=== PATIENT | female | born 1930 | race Caucasian/White ===

== ENCOUNTER 2017-04-30 14:48 | Inpatient (IN) | payer MEDICARE, OTHER ==
[~2017-04-30] VITALS: Ht 157.5 cm; Wt 51.8 kg
[2017-04-30 15:29] LABS: ABNORMAL IP MESSAGE 1; BASOPHILS % 0.2 % (0.0-2.0); HEMATOCRIT 37.9 % (37.0-47.0); HEMOGLOBIN 12.5 g/dl (12.0-16.0); LYMPHOCYTES # 0.4 10^3/ul (0.8-2.9); LYMPHOCYTES % 6.7 % (15.0-51.0); MEAN CORPUSCULAR HEMOGLOBIN 29.6 pg (29.0-33.0); MEAN CORPUSCULAR VOLUME 89.8 fl (82.0-101.0); MEAN PLATELET VOLUME 10.4 fl (7.4-10.4); MONOCYTE # 0.3 10^3/ul (0.3-0.9); MONOCYTES % 4.3 % (0.0-11.0); NEUTROPHIL # 5.5 10^3/ul (1.6-7.5); NEUTROPHILS % 88.5 % (39.0-77.0); PLATELET COUNT 367 10^3/UL (140-415); RED BLOOD COUNT 4.22 10^6/ul (4.20-5.40); RED CELL DISTRIBUTION WIDTH 15.9 % (11.5-14.5); WHITE BLOOD COUNT 6.3 10^3/ul (4.8-10.8)
[2017-04-30 15:40] LABS: POSITIVE DIFF @See below
[2017-04-30 15:42] LABS: INR 0.91; PROTIME 12.3 Sec (12.2-14.2)
[2017-04-30 15:43] LABS: PARTIAL THROMBOPLASTIN TIME 27.9 Sec (25.0-35.0)
[2017-04-30 15:48] LABS: ALANINE AMINOTRANSFERASE 58 IU/L (13-69); ALBUMIN 3.3 g/dl (3.3-4.9); ALBUMIN/GLOBULIN RATIO 0.86; ALKALINE PHOSPHATASE 77 IU/L (42-121); ANION GAP 12 (8-16); ASPARTATE AMINO TRANSFERASE 52 IU/L (15-46); BILIRUBIN,INDIRECT 0.3 mg/dl (0-1.1); BILIRUBIN,TOTAL 0.3 mg/dl (0.2-1.3); BLOOD UREA NITROGEN 38 mg/dl (7-20); CALCIUM 9.5 mg/dl (8.4-10.2); CARBON DIOXIDE 28 mmol/L (21-31); CHLORIDE 107 mmol/L (97-110); CREATININE 0.66 mg/dl (0.44-1.00); GLUCOSE 153 mg/dl (70-220); POTASSIUM 3.8 mmol/L (3.5-5.1); SODIUM 143 mmol/L (135-144); TOTAL PROTEIN 7.1 g/dl (6.1-8.1)
[2017-04-30 16:07] LABS: TROPONIN-I < 0.012 ng/ml (0.00-0.12)
--- NOTE | 2017-04-30 16:11 | RADRPT ---
PROCEDURE: X-ray Chest. CLINICAL INDICATION: Dyspnea. TECHNIQUE: Single view chest x-ray. COMPARISON: None available. FINDINGS: There are atherosclerotic changes of the aorta. The cardiomediastinal silhouette is large ly obscured pill there is complete opacification of the left hemithorax with shift of the mediastin al structures towards the right, consistent with a space occupying process, possibly an underlying e ffusion. The right lung is clear. There is no pneumothorax. There is mid thoracic dextroscoliosis. T here are no acute osseous abnormalities. Abnormal density overlying the left chest wall, which may b e external to the patient. IMPRESSION: 1. Complete opacification of the left hemithorax with shift of the mediastinal structures towards t he right, consistent with a space occupying process, possibly an underlying effusion. The mediastina l structures rightward shift may be accentuated due to the mid thoracic dextroscoliosis. 2. Vascular calcifications consistent with atherosclerosis. 3. Abnormal density overlying the chest wall, possibly external to the patient, consistent with the clinical findings of a fungating left breast mass. These findings discussed with Dr. Munguia in the ED at 1610 hours on 04/30/2017. RPTAT: HLBP .Anoop Whittington MD, MD Date Time Electronically viewed and signed by .Anoop Whittington MD, on 04/30/2017 16:11 .P/
[2017-04-30] MEDS ORDERED: SODIUM CHLORIDE 0.9% 1L BAG IV* STA (16:45)
[2017-04-30] MEDS ORDERED: CEFEPIME 2GM/50 ML (PMX) 50 ML IVPB STA (16:45)
[2017-04-30] MEDS ORDERED: SOD CHLORIDE 0.9% 1,000 ML IV SCH (16:56)
[2017-04-30] MEDS ORDERED: ENOXAPARIN 40 MG/0.4 ML SYG SC ONE (17:00)
[2017-04-30] MEDS ORDERED: ONDANSETRON 4 MG INJ IV PRN ×2 (17:00→23:00)
[2017-04-30] MEDS ORDERED: VANCOMYCIN 1 GM (PMX) 250 ML IVPB ONE (17:00)
[2017-04-30] MEDS ORDERED: ACETAMINOPHEN 325 MG TAB PO PRN ×2 (17:00→23:00)
--- NOTE | 2017-04-30 17:12 | ERA ---
ER Documentation Chief Complaint Date/Time DATE: 04/30/17 TIME: 17:06 Chief Complaint swelling on left breast, edema on left arm, bilat lower ext HPI This is an 86-year-old female who lives alone and presents to the emergency room for evaluation of shortness of breath. According to the patient she was at home and was feeling shortness of breath that she has been feeling for the past month. She states today was worse and she called 9 1 and was brought to the ER for evaluation. She states that she states she has been by a bug a few weeks ago and that is why she is having shortness of breath. This patient denies any chest pain associated with this but states that she has had some swelling in her left arm. The patient was brought to the ER for further evaluation and denies any aggravating or relieving factors for her symptoms. ROS All systems reviewed and are negative except as per history of present illness. Medications Home Meds No Active Prescriptions or Reported Meds Allergies Allergies: Coded Allergies: Penicillins (Verified Allergy, Intermediate, 04/30/17) PMhx/Soc Medical and Surgical Hx: pt denies Medical Hx, pt denies Surgical Hx Hx Alcohol Use: No Hx Substance Use: No Hx Tobacco Use: No Smoking Status: Never smoker Physical Exam Vitals Vital Signs Date Time Temp Pulse Resp B/P Pulse Ox O2 Delivery O2 Flow Rate FiO2 04/30/17 14:58 Nasal Cannula 2 04/30/17 14:55 98.3 109 19 142/81 98 Physical Exam INITIAL VITAL SIGNS: Reviewed by me GENERAL: The patient is frail-appearing elderly female, no acute distress HEENT: Dry mucous membranes, pupils equal, round, and reactive to light. EOMI. There is no scleral icterus. NECK: C-spine is soft and supple, there is no meningismus. There is no cervical lymphadenopathy. LUNGS: Diminished bilaterally. There are no rales, wheezes or rhonchi. HEART: Tachycardic, no murmurs, clicks, rubs or gallops. ABDOMEN: Soft, non-tender, non-distended. There are bowel sounds in all four quadrants. No rebound or guarding. EXTREMITIES: There is no peripheral cyanosis or edema. No focal swelling or erythema. NEUROLOGICAL: The patient moves all four extremities with 5/5 strength. Cranial nerves II - XII are intact. Normal gait. Alert and oriented SKIN: Large left-sided fungating breast mass with complete obliteration of breast tissue, inversion of nipple, and surrounding area of erythema. There is no apparent rash or petechiae. HEME/LYMPHATIC: Large 2+ lymphedema in the left upper extremity and left lower extremity PSYCHIATRIC: The patient does appear to be mildly anxious Result Diagram: 04/30/17 1450 04/30/17 1450 Results 24 hrs Laboratory Tests Test 04/30/17 14:50 04/30/17 14:52 White Blood Count 6.310^3/ul Red Blood Count 4.2210^6/ul Hemoglobin 12.5g/dl Hematocrit 37.9% Mean Corpuscular Volume 89.8fl Mean Corpuscular Hemoglobin 29.6pg Mean Corpuscular Hemoglobin Concent 33.0g/dl Red Cell Distribution Width 15.9% Platelet Count 13684^3/UL Mean Platelet Volume 10.4fl Neutrophils % 88.5% Lymphocytes % 6.7% Monocytes % 4.3% Eosinophils % 0.0% Basophils % 0.2% Nucleated Red Blood Cells % 0.0/100WBC Neutrophils # 5.510^3/ul Lymphocytes # 0.410^3/ul Monocytes # 0.310^3/ul Eosinophils # 0.010^3/ul Basophils # 0.010^3/ul Nucleated Red Blood Cells # 0.010^3/ul Prothrombin Time 12.3Sec Prothrombin Time Ratio 1.0 INR International Normalized Ratio 0.91 Activated Partial Thromboplast Time 27.9Sec Sodium Level 143mmol/L Potassium Level 3.8mmol/L Chloride Level 107mmol/L Carbon Dioxide Level 28mmol/L Anion Gap 12 Blood Urea Nitrogen 38mg/dl Creatinine 0.66mg/dl Glucose Level 153mg/dl Calcium Level 9.5mg/dl Total Bilirubin 0.3mg/dl Direct Bilirubin 0.00mg/dl Indirect Bilirubin 0.3mg/dl Aspartate Amino Transf (AST/SGOT) 52IU/L Alanine Aminotransferase (ALT/SGPT) 58IU/L Alkaline Phosphatase 77IU/L Troponin I < 0.012ng/ml Total Protein 7.1g/dl Albumin 3.3g/dl Globulin 3.80g/dl Albumin/Globulin Ratio 0.86 Lactic Acid Level 2.6mmol/L Current Medications Medications (Trade) Dose Ordered Sig/Brown Route PRN Reason Start Time Stop Time Status Last Admin Dose Admin Sodium Chloride 1500 ml 1,500 ml BOLUS OVER 2 HOURS STAT IV* 04/30/17 16:45 04/30/17 16:46 DC Cefepime HCl 50 ml @ 100 mls/hr ONCE STAT IVPB 04/30/17 16:45 04/30/17 17:14 Vancomycin HCl (Vancocin) 250 ml @ 125 mls/hr ONCE ONCE IVPB 04/30/17 17:00 04/30/17 18:59 Enoxaparin Sodium 40 mg 40 mg ONCE ONCE SC 04/30/17 17:00 04/30/17 17:01 DC Sodium Chloride (NS) 1,000 ml @ 80 mls/hr [id number] IV 04/30/17 16:56 05/01/17 05:25 Ondansetron HCl (Zofran Inj) 4 mg ER BRIDGE PRN IV NAUSEA AND/OR VOMITING 04/30/17 17:00 05/01/17 16:59 Acetaminophen (Tylenol Tab) 650 mg ER BRIDGE PRN PO MILD PAIN/FEVER 04/30/17 17:00 05/01/17 16:59 Procedures/MDM EKG: Rate/Rhythm: Sinus tachycardia QRS, ST, T-waves: [No changes consistent w/ acute ischemia] Impression: [No evidence of ischemia or arrhythmia] Chest X-ray 1V Interpreted by me: Soft Tissue: 1. Complete opacification of the left hemithorax with shift of the mediastinal structures towards the right, consistent with a space occupying process, possibly an underlying effusion. The mediastinal structures rightward shift may be accentuated due to the mid thoracic dextroscoliosis. 2. Vascular calcifications consistent with atherosclerosis. 3. Abnormal density overlying the chest wall, possibly external to the patient , consistent with the clinical findings of a fungating left breast mass. This 86-year-old female presents to the emergency room for evaluation of shortness of breath. When I evaluated the patient I noted frail-appearing elderly female who is in no acute distress however she was tachycardic. On my examination ideology large fungating left-sided breast mass with complete obliteration of the left breast and surrounding tissue. This patient has severe lymphedema in the left upper extremity and left lower extremity. She was not hypoxic however she was tachycardic. The patient had a septic workup in the emergency room was just reveals an elevated lactic acid. The patient was given 30 cc/kg of IV normal saline. She was started on vancomycin and Zosyn for what appears to be an overlying cellulitis of this area. X-ray does reveal complete opacification of the left hemithorax and slight shift of the mediastinal structures towards the right. She also appears to have a space occupying process which I believe is possibly invasive tumor. This patient has had no follow-up with any physician in does live by herself. I advised patient she will need to come into the hospital for admission and hematology consultation. This patient will also need CT angiogram of the chest however a CAT scan machine is down at this time. Given her tachycardia the patient was given 40 mg of subcutaneous Lovenox and will be placed in for admission to the telemetry floor. Critical Care: Excluding all billable procedures Time: 43 minutes Treatments/Evaluations: Close monitoring and treatment of unstable vital signs, cardiorespiratory, and neurologic status, while maintaining tight balance of fluid, respiratory, and cardiac interventions. Departure Diagnosis: Primary Impression: Breast mass in female Additional Impressions: Breast mass, left Cellulitis of breast Respiratory distress Lymphedema of left arm Condition: Stable JORDON DELGADO DO Apr 30, 2017 17:12
[2017-04-30 19:34] VITALS: TEMP 99.3
[2017-04-30 21:00] VITALS: Ht 157.5 cm; Wt 51.8 kg
[2017-04-30 21:11] VITALS: PULSE 121
[2017-04-30 21:12] VITALS: PULSE 150
[2017-04-30 21:21] VITALS: BP 145/96; PULSE 107; RESP 18
[2017-04-30] MEDS ORDERED: VANCOMYCIN IV PER PHARMACY XX SCH (22:30)
[2017-04-30] MEDS: SOD CHLORIDE 0.9% 1,000 ML IV SCH (22:30)
[2017-04-30] MEDS ORDERED: morphine 2 MG INJ IV PRN (22:30)
[2017-05-01] VITALS (40 sets, daily range): BP systolic 79–150; BP diastolic 47–126; PULSE 88–118; RESP 14–24
[2017-05-01] MEDS: SOD CHLORIDE 0.9% 1,000 ML IV SCH ×3 (01:00→10:38)
[2017-05-01] MEDS ORDERED: ALBUTEROL/IPRATROPIUM (NEB) 3 ML AMP HHN PRN (02:06)
[2017-05-01] MEDS ORDERED: ALBUTEROL/IPRATROPIUM (NEB) 3 ML AMP ONE (02:07)
--- NOTE | 2017-05-01 06:20 | HP ---
Date/Time of Note Date/Time of Note DATE: 05/01/17 TIME: 06:08 Assessment/Plan VTE Prophylaxis VTE Prophylaxis Intervention: heparin Lines/Catheters IV [facility]ter Type [facility]from [facility]): Peripheral IV Urinary Cath still in place: No Assessment/Plan Assessment/Plan ASSESSMENT 86-year-old female with a history of arthritis and benign right breast cyst status post removal presented complaining of shortness of breath and found to have a fungating left breast mass and complete opacification of the left hemithorax with mediastinal shift, likely effusion. presenting symptom worrisome for malignancy. PLAN IV antibiotics MRI of the breasts/chest. ID and pulmonary consult Surgery consult for a biopsy Supplemental oxygen and breathing treatments Left breast wound culture Pain management HPI/ROS Admit Date/Time Admit Date/Time Apr 30, 2017 at 16:58 Hx of Present Illness This is an 86-year-old female with a history of arthritis and right breast cyst status post removal who presented to the emergency department complaining of shortness of breath, left upper extremity swelling. Shortness of breath has been progressively getting worse over the past few days. She also reported generalized weakness and lack of energy. On physical exam, pt has a hard fungating hard left breast mass with significant left upper ext swelling with pitting edema. Patient thinks that she was bitten by a bug a while ago. She is very frail, said she has been living alone. The last time she saw a Doctor was 30 years ago. She denied chest pain, fever, chills, nausea, vomiting, abdominal pain or urinary symptoms. Chest x-ray shows the followin. Complete opacification of the left hemithorax with shift of the mediastinal structures towards the right, consistent with a space occupying process, possibly an underlying effusion. The mediastinal structures rightward shift may be accentuated due to the mid thoracic dextroscoliosis. 2. Vascular calcifications consistent with atherosclerosis. 3. Abnormal density overlying the chest wall, possibly external to the patient , consistent with the clinical findings of a fungating left breast mass. . PMH/Family/Social Past Medical History Medical History: other (Arthritis) Past Surgical History Past Surgical Hx: other (Right breast cyst removal) Social History Smoking Status: Never smoker Exam/Review of Systems Vital Signs Vitals Vital Signs Date Time Temp Pulse Resp B/P Pulse Ox O2 Delivery O2 Flow Rate FiO2 05/01/17 04:12 97.6 114 18 123/55 100 9/18/17 02:26 4.0 05/01/17 02:26 Nasal Cannula Intake and Output 04/30/17 04/30/17 05/01/17 15:00 23:00 07:00 Intake Total 120 ml Output Total 600 ml Balance -480 ml Exam Constitutional: frail Head: atraumatic, normocephalic Eyes: PERRL Respiratory: diminished breath sounds Cardiovascular: other (Tachycardic with regular rhythm) Gastrointestinal: non-tender, soft Extremities: normal pulses Additional Comments Left breast with a large fungating hard mass with overlying erythema Labs Result Diagram: 04/30/17 1450 04/30/17 1450 Medications Medications Current Medications Morphine Sulfate (morphine) 2 mg Q4H PRN IV PAIN LEVEL 4-7; Start 04/30/17 at 22:30 Heparin Sodium (Porcine) 5000 unit 5,000 unit BID SC ; Start 05/01/17 at 09:00 Meropenem/Sodium Chloride 50 ml @ 200 mls/hr Q12 IVPB ; Start 05/01/17 at 09:00 Sodium Chloride (NS) 1,000 ml @ 100 mls/hr Q10H IV ; Start 04/30/17 at 22:30; Stop 05/01/17 at 13:30 Ondansetron HCl (Zofran Inj) 4 mg Q6H PRN IV NAUSEA AND/OR VOMITING; Start at 23:00 Acetaminophen 650 mg 650 mg Q6H PRN PO PAIN AND OR ELEVATED TEMP; Start at 23:00 Vancomycin HCl/ Sodium Chloride (Vancocin/NS) 150 ml @ 75 mls/hr Q24H IVPB ; Start 05/01/17 at 19:00 VALDEZ LOVE MD May 01, 2017 06:18
[2017-05-01] MEDS ORDERED: SUCCINYLCHOLINE CHLORIDE 100 MG/5 ML SYG IV ONE (07:00)
[2017-05-01] MEDS ORDERED: ETOMIDATE 20 MG INJ ONE (07:00)
[2017-05-01 08:20] LABS: ABNORMAL IP MESSAGE 1; BASOPHILS % 0.1 % (0.0-2.0); HEMATOCRIT 40.3 % (37.0-47.0); HEMOGLOBIN 12.5 g/dl (12.0-16.0); LYMPHOCYTES # 0.6 10^3/ul (0.8-2.9); LYMPHOCYTES % 7.9 % (15.0-51.0); MEAN CORPUSCULAR HEMOGLOBIN 28.9 pg (29.0-33.0); MEAN CORPUSCULAR VOLUME 93.3 fl (82.0-101.0); MONOCYTE # 0.4 10^3/ul (0.3-0.9); MONOCYTES % 5.7 % (0.0-11.0); NEUTROPHIL # 6.3 10^3/ul (1.6-7.5); NEUTROPHILS % 85.6 % (39.0-77.0); PLATELET COUNT 316 10^3/UL (140-415); RED BLOOD COUNT 4.32 10^6/ul (4.20-5.40); RED CELL DISTRIBUTION WIDTH 16.4 % (11.5-14.5); WHITE BLOOD COUNT 7.3 10^3/ul (4.8-10.8)
[2017-05-01 08:24] LABS: POSITIVE DIFF @See below
[2017-05-01 08:49] LABS: ALBUMIN/GLOBULIN RATIO 0.83; BILIRUBIN,INDIRECT 0.1 mg/dl (0-1.1); BILIRUBIN,TOTAL 0.1 mg/dl (0.2-1.3); CALCIUM 9.1 mg/dl (8.4-10.2); CREATININE 0.54 mg/dl (0.44-1.00); MAGNESIUM 2.3 mg/dl (1.7-2.5); PHOSPHORUS 4.4 mg/dl (2.5-4.9); POTASSIUM 4.3 mmol/L (3.5-5.1); TOTAL PROTEIN 6.6 g/dl (6.1-8.1)
[2017-05-01] MEDS ORDERED: HEPARIN 5,000 UNIT/0.5 ML VIAL SC SCH (09:00)
[2017-05-01] MEDS ORDERED: MEROPENEM 500MG/50 ML (PMX) 50 ML IVPB SCH (09:00)
--- NOTE | 2017-05-01 11:52 | RADRPT ---
PROCEDURE: CT Brain without contrast. CLINICAL INDICATION: Altered mental status. Evaluate for intracranial bleed. TECHNIQUE: A CT of the brain was performed on a multidetector CT scanner utilizing axial sections from the skull base through the vertex without contrast. Images were reviewed on a high-resolution [employer] workstation. Exam CTDI = 44.46 mGy and the DLP = 630.20 mGy-cm. One or more of the following dose reduction techniques were used: Automated exposure control Adjustment of the mA and/or kV according to patient size. Use of iterative reconstruction technique. COMPARISON: None available FINDINGS: Mild diffuse cerebral and cerebellar atrophy is present. There is proportionate dilatation of the v entricular system and sulci in a symmetric fashion. There is prominence of the extraaxial spaces sec ondary to atrophy. There is no evidence of intracranial hemorrhage, mass effect or midline shift. Th ere is enlargement of the bilateral superior ophthalmic veins right being more prominent. No abnorma l intra-axial or extra-axial fluid collections are seen. The density of the brain is normal and the velez/white matter differentiation is well preserved. Mild patchy diffuse deep white matter microan giopathic ischemic change is seen. The osseous structures are unremarkable. Paranasal sinuses ar e clear. IMPRESSION: 1. No intracranial hemorrhage, mass effect or midline shift. 2. Enlarged bilateral superior ophthalmic veins right being more prominent. This is a nonspecific s ign can be seen with caroticocavernous fistula, ophthalmic vein varix or increased intracranial pres sure. CTA of the brain would be useful for further evaluation. 3. Mild generalized atrophy. Mild to moderate microangiopathic ischemic change. RPTAT: BB .Gerry Montoya MD, Date Time Electronically viewed and signed by .Gerry Montoya MD, on 05/01/2017 11:51 .O/
--- NOTE | 2017-05-01 11:59 | RADRPT ---
PROCEDURE: US upper extremity Venous. CLINICAL INDICATION: Left arm edema TECHNIQUE: Multiple sonographic images of the left upper extremity venous system was obtained util izing grayscale, color-flow, compressive sonography and doppler imaging with augmentation. The imag es were reviewed on a PACS workstation. COMPARISON: None. FINDINGS: There is normal compressibility and flow within the left internal jugular vein, subclavian vein, axi llary vein, brachial, basilic, cephalic, radial and ulnar veins. There is extensive soft tissue swelling noted. RPTAT: AA IMPRESSION: No sonographic evidence for venous thrombosis. Extensive soft tissue swelling noted. .Migel Lopez MD, MD Date Time Electronically viewed and signed by .Migel Lopez MD, on 05/01/2017 11:58 .S/
[2017-05-01] MEDS ORDERED: PENDING SANTYL ORDER FOR WOUND CARE XX PRN (12:00)
[2017-05-01] MEDS: COLLAGENASE 30 GM TUBE TOP SCH (13:16)
[2017-05-01] MEDS ORDERED: NALOXONE (0.4 MG/ML) INJ IV ONE (14:30)
--- NOTE | 2017-05-01 14:36 | CONS ---
Date/Time of Note Date/Time of Note DATE: 05/01/17 TIME: 14:04 Assessment/Plan Assessment/Plan Chief Complaint/Hosp Course 1. Left breast fungating mass/wound -local wound care -heme/onc consult: workup for malignancy 2. Shortness of breath 2/[address] effusion -supportive 3. Obtunded: 2/2 morphine vs. other -abg -narcan -judicious pain meds 4. Lactic acidosis: improved 5. Hypoalbuminemia: malnutrition + inflammation -nutrition optimization -as above Patient seen and examined in collaboration with Dr. Monico Kay. Thank you. Problems: Consultation Date/Type/Reason Admit Date/Time Apr 30, 2017 at 16:58 Date of Consultation: May 01, 2017 Type of Consultation: surgical Reason for Consultation breast mass/wound Referring Provider: VALDEZ LOVE MD Hx of Present Illness Nano Grace is an 86-year-old woman who presented to the emergency department complaining of shortness of breath that has worsened over the past few days as well as, left upper extremity swelling. She also reported generalized weakness and lack of energy. She denies chest pain, fever, chills, nausea, vomiting, abdominal pain or urinary symptoms, excessive wound drainage. CXR shows complete opacification of the left hemithorax with shift of the mediastinal structures towards the right, consistent with a space occupying process, possibly an underlying effusion. General surgery consult was called to evaluate. Constitutional: No chills, No febrile Eyes: No visual change ENT: No congestion Respiratory: shortness of breath Cardiovascular: No chest pain Gastrointestinal: No nausea, No vomiting Genitourinary: No dysuria Musculoskeletal: swelling (left arm) Skin: other (L breast discoloration) Neurologic: No dizziness, No headache Past Medical History arthritis right breast cyst status post removal Medical History: other (Arthritis) Past Surgical History Past Surgical Hx: other (Right breast cyst removal) Social History Smoking Status: Never smoker Exam/Review of Systems Vital Signs Vitals Vital Signs Date Time Temp Pulse Resp B/P Pulse Ox O2 Delivery O2 Flow Rate FiO2 05/01/17 12:53 Nasal Cannula 4.0 05/01/17 12:19 98.6 109 19 132/61 97 Intake and Output 04/30/17 04/30/17 05/01/17 14:59 22:59 06:59 Intake Total 770 ml Output Total 600 ml Balance 170 ml Exam Constitutional: alert, oriented, other (obtunded, withrdraws from pain) Psych: nl mood/affect Head: atraumatic, normocephalic Eyes: nl lids, nl sclera ENMT: No mucosa pink and moist (dry) Neck: jvd, non-tender, supple Respiratory: diminished breath sounds, other (left breast discoloration, much smaller than other breast, hardened) Cardiovascular: edema (left arm and BLE edema), nl pulses, other (ST), regular rate and rhythm Gastrointestinal: non-tender, soft, No distended Musculoskeletal: swelling Extremities: pitting pedal edema (with +BUE) Skin: other (left breast wounds-large drainage; ) Results Result Diagram: 05/01/17 0703 05/01/17 0703 Results 24 hrs Laboratory Tests Test 04/30/17 14:50 04/30/17 14:52 04/30/17 16:59 04/30/17 18:47 White Blood Count 6.3 Red Blood Count 4.22 Hemoglobin 12.5 Hematocrit 37.9 Mean Corpuscular Volume 89.8 Mean Corpuscular Hemoglobin 29.6 Mean Corpuscular Hemoglobin Concent 33.0 Red Cell Distribution Width 15.9 H Platelet Count 367 Mean Platelet Volume 10.4 Neutrophils % 88.5 H Lymphocytes % 6.7 L Monocytes % 4.3 Eosinophils % 0.0 Basophils % 0.2 Nucleated Red Blood Cells % 0.0 Neutrophils # 5.5 Lymphocytes # 0.4 L Monocytes # 0.3 Eosinophils # 0.0 Basophils # 0.0 Nucleated Red Blood Cells # 0.0 Prothrombin Time 12.3 Prothrombin Time Ratio 1.0 INR International Normalized Ratio 0.91 Activated Partial Thromboplast Time 27.9 Sodium Level 143 Potassium Level 3.8 Chloride Level 107 Carbon Dioxide Level 28 Anion Gap 12 Blood Urea Nitrogen 38 H Creatinine 0.66 Glucose Level 153 Calcium Level 9.5 Total Bilirubin 0.3 Direct Bilirubin 0.00 Indirect Bilirubin 0.3 Aspartate Amino Transf (AST/SGOT) 52 H Alanine Aminotransferase (ALT/SGPT) 58 Alkaline Phosphatase 77 Troponin I < 0.012 Total Protein 7.1 Albumin 3.3 Globulin 3.80 H Albumin/Globulin Ratio 0.86 Lactic Acid Level 2.6 *H 1.6 1.4 Test 05/01/17 07:03 White Blood Count 7.3 Red Blood Count 4.32 Hemoglobin 12.5 Hematocrit 40.3 Mean Corpuscular Volume 93.3 Mean Corpuscular Hemoglobin 28.9 L Mean Corpuscular Hemoglobin Concent 31.0 L Red Cell Distribution Width 16.4 H Platelet Count 316 Mean Platelet Volume 11.0 H Neutrophils % 85.6 H Lymphocytes % 7.9 L Monocytes % 5.7 Eosinophils % 0.0 Basophils % 0.1 Nucleated Red Blood Cells % 0.0 Neutrophils # 6.3 Lymphocytes # 0.6 L Monocytes # 0.4 Eosinophils # 0.0 Basophils # 0.0 Nucleated Red Blood Cells # 0.0 Sodium Level 144 Potassium Level 4.3 Chloride Level 112 H Carbon Dioxide Level 27 Anion Gap 9 Blood Urea Nitrogen 29 H Creatinine 0.54 Glucose Level 113 # Calcium Level 9.1 Phosphorus Level 4.4 Magnesium Level 2.3 Total Bilirubin 0.1 L Direct Bilirubin 0.00 Indirect Bilirubin 0.1 Aspartate Amino Transf (AST/SGOT) 67 H Alanine Aminotransferase (ALT/SGPT) 48 Alkaline Phosphatase 76 Total Protein 6.6 Albumin 3.0 L Globulin 3.60 H Albumin/Globulin Ratio 0.83 Prealbumin 12.4 L Medications Medications Current Medications Morphine Sulfate (morphine) 2 mg Q4H PRN IV PAIN LEVEL 4-7 Last administered on 05/01/17 11:08; Admin Dose 2 MG; Start 04/30/17 at 22:30 Heparin Sodium (Porcine) 5000 unit 5,000 unit BID SC Last administered on 09:02; Admin Dose 5,000 UNIT; Start 05/01/17 at 09:00 Meropenem/Sodium Chloride (Merrem 500mg/50 ml(Pmx)) 50 ml @ 200 mls/hr Q12 IVPB Last administered on 05/01/17 09:01; Admin Dose 200 MLS/HR; Start at 09:00 Ondansetron HCl (Zofran Inj) 4 mg Q6H PRN IV NAUSEA AND/OR VOMITING; Start at 23:00 Acetaminophen 650 mg 650 mg Q6H PRN PO PAIN AND OR ELEVATED TEMP; Start at 23:00 Vancomycin HCl/ Sodium Chloride (Vancocin/NS) 150 ml @ 75 mls/hr Q24H IVPB ; Start 05/01/17 at 19:00 Miscellaneous Information (Pending Santyl Order For Wound Care) This patient kaur... PRN PRN XX WOUND CARE; Start 05/01/17 at 12:00 Collagenase (Santyl) 1 applic DAILY TOP Last administered on 05/01/17t 13:16; Admin Dose 1 APPLIC; Start 05/01/17 at 13:00 LEANDRO AGUILAR NP May 01, 2017 14:14
[2017-05-01 14:48] LABS: Allen Test ACCEPTAB; Arterial Base Excess 0.4 mmol/L (-3.0-3); Arterial COHb 0.3 % (0.0-3.0); Arterial Fraction of Oxyhgb 96.5 % (93.0-99.0); Arterial HCO3 32.1 mmol/L (22.0-26.0); Arterial MetHb 0.3 % (0.0-1.5); Arterial Total Hemglobin 13.4 g/dl (12.0-18.0); MODE NASAL CANNULA
[2017-05-01] MEDS ORDERED: ENOXAPARIN 40 MG/0.4 ML SYG SC ONE (15:00)
--- NOTE | 2017-05-01 16:23 | CONS ---
Date/Time of Note Date/Time of Note DATE: 05/01/17 TIME: 16:22 Consultation Date/Type/Reason Admit Date/Time Apr 30, 2017 at 16:58 Date of Consultation: May 01, 2017 Type of Consultation: [id number] Reason for Consultation dictated # [id number] Intubation # [id number] Constitutional: No chills, No febrile Eyes: No visual change ENT: No congestion Respiratory: shortness of breath Cardiovascular: No chest pain Gastrointestinal: No nausea, No vomiting Genitourinary: No dysuria Musculoskeletal: swelling (left arm) Skin: other (L breast discoloration) Neurologic: No dizziness, No headache Psychological: nl mood/affect Past Medical History Medical History: other (Arthritis) Past Surgical History Past Surgical Hx: other (Right breast cyst removal) Social History Smoking Status: Never smoker Exam/Review of Systems Vital Signs Vitals Vital Signs Date Time Temp Pulse Resp B/P Pulse Ox O2 Delivery O2 Flow Rate FiO2 05/01/17 15:44 112 05/01/17 15:05 95 50 05/01/17 14:33 Nasal Cannula 4.0 05/01/17 12:19 98.6 19 132/61 Intake and Output 04/30/17 04/30/17 05/01/17 15:00 23:00 07:00 Intake Total 770 ml Output Total 600 ml Balance 170 ml Results Result Diagram: 05/01/17 0703 05/01/17 0703 Results 24 hrs Laboratory Tests Test 04/30/17 16:59 04/30/17 18:47 05/01/17 07:03 05/01/17 14:20 Lactic Acid Level 1.6 1.4 White Blood Count 7.3 Red Blood Count 4.32 Hemoglobin 12.5 Hematocrit 40.3 Mean Corpuscular Volume 93.3 Mean Corpuscular Hemoglobin 28.9 L Mean Corpuscular Hemoglobin Concent 31.0 L Red Cell Distribution Width 16.4 H Platelet Count 316 Mean Platelet Volume 11.0 H Neutrophils % 85.6 H Lymphocytes % 7.9 L Monocytes % 5.7 Eosinophils % 0.0 Basophils % 0.1 Nucleated Red Blood Cells % 0.0 Neutrophils # 6.3 Lymphocytes # 0.6 L Monocytes # 0.4 Eosinophils # 0.0 Basophils # 0.0 Nucleated Red Blood Cells # 0.0 Sodium Level 144 Potassium Level 4.3 Chloride Level 112 H Carbon Dioxide Level 27 Anion Gap 9 Blood Urea Nitrogen 29 H Creatinine 0.54 Glucose Level 113 # Calcium Level 9.1 Phosphorus Level 4.4 Magnesium Level 2.3 Total Bilirubin 0.1 L Direct Bilirubin 0.00 Indirect Bilirubin 0.1 Aspartate Amino Transf (AST/SGOT) 67 H Alanine Aminotransferase (ALT/SGPT) 48 Alkaline Phosphatase 76 Total Protein 6.6 Albumin 3.0 L Globulin 3.60 H Albumin/Globulin Ratio 0.83 Prealbumin 12.4 L Blood Gas Specimen Source Blood arterial Arterial Blood Date Drawn 05/01/2017 2:38:25 PM Arterial Blood pH (Temp corrected) 7.146 *L Arterial Blood pCO2 (Temp correct) 95.1 *H Arterial Blood pO2 (Temp corrected) 99.3 H Arterial Blood HCO3 32.1 H Arterial Blood Base Excess 0.4 Arterial Blood Oxygen Saturation 97.1 Rock Test ACCEPTAB Arterial Blood Gas Puncture Site Right Radial Arterial Blood Carboxyhemoglobin 0.3 Arterial Blood Methemoglobin 0.3 Blood Gas A-a O2 Differential 25.0 H Oxyhemoglobin Percent 96.5 Total Hemoglobin 13.4 Blood Gas Temperature 37.0 Blood Gas Modality NASAL CANNULA FiO2 33.0 Blood Gas Critical Value Read Back Gail CALIX RN Blood Gas Notified Whom Blood Gas Notified Time 05/01/2017 2:45:58 PM Medications Medications Current Medications Morphine Sulfate 2 mg 2 mg Q4H PRN IV PAIN LEVEL 4-7 Last administered on 11:08; Admin Dose 2 MG; Start 04/30/17 at 22:30 Meropenem/Sodium Chloride (Merrem 500mg/50 ml(Pmx)) 50 ml @ 200 mls/hr Q12 IVPB Last administered on 05/01/17 09:01; Admin Dose 200 MLS/HR; Start at 09:00 Ondansetron HCl (Zofran Inj) 4 mg Q6H PRN IV NAUSEA AND/OR VOMITING; Start at 23:00 Acetaminophen 650 mg 650 mg Q6H PRN PO PAIN AND OR ELEVATED TEMP; Start at 23:00 Vancomycin HCl/ Sodium Chloride (Vancocin/NS) 150 ml @ 75 mls/hr Q24H IVPB ; Start 05/01/17 at 19:00 Miscellaneous Information (Pending Santyl Order For Wound Care) This patient kaur... PRN PRN XX WOUND CARE; Start 05/01/17 at 12:00 Collagenase (Santyl) 1 applic DAILY TOP Last administered on 05/01/17t 13:16; Admin Dose 1 APPLIC; Start 05/01/17 at 13:00 Heparin Sodium (Porcine) 5000 unit 5,000 unit BID SC ; Start 05/02/17 at 09:00; Status UNV Propofol (Diprivan) 100 ml @ 1.554 mls/ hr Q12H IV ; Start 05/01/17 at 16:30; Status UNV Lidocaine (Xylocaine 1% (Mpf)) 5 ml ONCE ONCE SC ; Start 05/01/17 at 16:30; Stop 05/01/17 at 16:31; Status UNV MAHI LYN May 01, 2017 16:23
[2017-05-01] MEDS ORDERED: LIDOCAINE 1% (MPF) 5 ML VIAL SC ONE ×2 (16:30)
--- NOTE | 2017-05-01 16:50 | RADRPT ---
PROCEDURE: XR Chest. CLINICAL INDICATION: Shortness of breath TECHNIQUE: Single frontal chest x-ray. COMPARISON: 04/30/2017 FINDINGS: There is interval placement of an endotracheal tube with the tip 4 cm above the annamarie. There is als o interval placement of an enteric tube which can be followed to the stomach. The tip is not seen. T he side port is in the region of the proximal stomach. There are atherosclerotic changes of the aort a. The cardiomediastinal silhouette is largely obscured pill there is complete opacification of the left hemithorax with shift of the mediastinal structures towards the right, consistent with a space occupying process, possibly an underlying effusion. The right lung is clear. There is no pneumothora x. There is mid thoracic dextroscoliosis. There are no acute osseous abnormalities. IMPRESSION: 1. Interval placement of endotracheal tube with the tip 4.0 cm above the annamarie. Enteric tube can b e followed to the region of the stomach, the tip is not seen. 2. Otherwise, no significant interval change. RPTAT: JJ .Josef Saucedo MD, Date Time Electronically viewed and signed by .Josef Saucedo MD, on 05/01/2017 16:50 .A/
[2017-05-01] MEDS: PROPOFOL 100 ML IV SCH (17:12)
[2017-05-01 17:54] LABS: ADD UMIC YES; UR ASCORBIC ACID 40 mg/dL (NEGATIVE); UR BILIRUBIN (Dip) NEGATIVE (NEGATIVE); UR BLOOD (Dip) 3+ mg/dL (NEGATIVE); UR CLARITY TURBID (CLEAR); UR COLOR AMBER (YELLOW); UR GLUCOSE (Dip) NEGATIVE (NEGATIVE); UR KETONES (Dip) TRACE mg/dL (NEGATIVE); UR LEUKOCYTE ESTERASE (Dip) NEGATIVE Leu/ul (NEGATIVE); UR MUCUS MANY /HPF (NONE SEEN); UR NITRITE (Dip) NEGATIVE (NEGATIVE); UR RBC > 182 /HPF (0-5); UR SPECIFIC GRAVITY (Dip) 1.025 (1.003-1.030); UR TOTAL PROTEIN (Dip) 2+ mg/dl (NEGATIVE); UR UROBILINOGEN (Dip) NEGATIVE (NEGATIVE)
[2017-05-01 18:09] LABS: AADO2 Arterial 153.9 mmHg (7.0-24.0); Allen Test ACCEPTAB; Arterial Base Excess 0.8 mmol/L (-3.0-3); Arterial COHb 0.3 % (0.0-3.0); Arterial Fraction of Oxyhgb 98.6 % (93.0-99.0); Arterial HCO3 26.9 mmol/L (22.0-26.0); Arterial MetHb 0.3 % (0.0-1.5); Arterial Total Hemglobin 12.5 g/dl (12.0-18.0); MODE VENT - AC
--- NOTE | 2017-05-01 18:23 | PN ---
Date/Time of Note Date/Time of Note DATE: 05/01/17 TIME: 18:12 Assessment/Plan VTE Prophylaxis VTE Prophylaxis Intervention: SCD's Lines/Catheters IV Catheter Type (from Nrs): Peripheral IV Urinary Cath still in place: No Assessment/Plan Assessment/Plan 86 yo F presented with c/o SOB found to have a large L breast/chest wall fungating mass highly suspicious for malignancy. Today went into hypercapnic respiratory distress likely 2/2 this mass requiring intubation. #L breast/chest mass: MR imaging of chest ordered to eval for extent of mass and likely malignancy wound care/gen surg on consult for fungatory element IR guided biopsy ordered for tissue diagnosis #hypercapnic respiratory failure: etio unclear. possibly from morphine but did not improve with narcan, possibly PE as complication of chest mass -cont empiric ATC -MRA will also show if PE is present (LUE US negative for DVT) GOALS OF CARE spoke with pt's daughter Orlando Howell (home phone [phone], cell [phone] ) prior to pt's intubation. She stated pt does not have an advance directive/ living will. Of pt's three children she is the only one from whom pt is not estranged. Though Orlando knows her mother is very ill, requested intubation this afternoon as she was driving in from [facility] and wanted a chance to "say goodbye" Now that pt is intubated, will attempt to complete diagnostic work up. Will also clarify with Orlando if she would like mother to be full code v DNR. Given pt's likely advanced malignancy, risks of ACLS are likely to exceed benefit for this patient. Subjective 24 Hr Interval Summary Free Text/Dictation Pt's clinical status deteriorated as the day went on. Went down for MRA chest and could not tolerate 2/2 pain. Given 2mg IV morphine upon return, after which demonstrated abnormal breathing patterns (looked suggestive of agonal breathing ) throughout much of the afternoon. Pt difficult to rouse. Narcan administered but pt still quite somnolent. ABG with severe respiratory acidosis Exam/Review of Systems Vital Signs Vitals Vital Signs Date Time Temp Pulse Resp B/P Pulse Ox O2 Delivery O2 Flow Rate FiO2 05/01/17 17:45 89 16 105/62 59 05/01/17 16:00 98.3 05/01/17 16:00 60 05/01/17 14:33 Nasal Cannula 4.0 Intake and Output 04/30/17 04/30/17 05/01/17 14:59 22:59 06:59 Intake Total 770 ml Output Total 600 ml Balance 170 ml Exam somnolent L breast replaced but 10 cm firm fungating mass with involution of nipple. multiple hard lymph nodes in L axilla, +LUE swelling no mrg abd soft no edema Results Result Diagram: 05/01/17 0703 05/01/17 0703 Results 24 hrs Laboratory Tests Test 04/30/17 18:47 05/01/17 07:03 05/01/17 14:20 05/01/17 16:15 Lactic Acid Level 1.4 White Blood Count 7.3 Red Blood Count 4.32 Hemoglobin 12.5 Hematocrit 40.3 Mean Corpuscular Volume 93.3 Mean Corpuscular Hemoglobin 28.9 L Mean Corpuscular Hemoglobin Concent 31.0 L Red Cell Distribution Width 16.4 H Platelet Count 316 Mean Platelet Volume 11.0 H Neutrophils % 85.6 H Lymphocytes % 7.9 L Monocytes % 5.7 Eosinophils % 0.0 Basophils % 0.1 Nucleated Red Blood Cells % 0.0 Neutrophils # 6.3 Lymphocytes # 0.6 L Monocytes # 0.4 Eosinophils # 0.0 Basophils # 0.0 Nucleated Red Blood Cells # 0.0 Sodium Level 144 Potassium Level 4.3 Chloride Level 112 H Carbon Dioxide Level 27 Anion Gap 9 Blood Urea Nitrogen 29 H Creatinine 0.54 Glucose Level 113 # Calcium Level 9.1 Phosphorus Level 4.4 Magnesium Level 2.3 Total Bilirubin 0.1 L Direct Bilirubin 0.00 Indirect Bilirubin 0.1 Aspartate Amino Transf (AST/SGOT) 67 H Alanine Aminotransferase (ALT/SGPT) 48 Alkaline Phosphatase 76 Total Protein 6.6 Albumin 3.0 L Globulin 3.60 H Albumin/Globulin Ratio 0.83 Prealbumin 12.4 L Blood Gas Specimen Source Blood arterial Blood arterial Arterial Blood Date Drawn 05/01/2017 2:38:25 PM 05/01/2017 6:00:43 PM Arterial Blood pH (Temp corrected) 7.146 *L 7.356 Arterial Blood pCO2 (Temp correct) 95.1 *H 49.1 H Arterial Blood pO2 (Temp corrected) 99.3 H 219.9 H Arterial Blood HCO3 32.1 H 26.9 H Arterial Blood Base Excess 0.4 0.8 Arterial Blood Oxygen Saturation 97.1 99.2 Rock Test ACCEPTAB ACCEPTAB Arterial Blood Gas Puncture Site Right Radial Right Radial Arterial Blood Carboxyhemoglobin 0.3 0.3 Arterial Blood Methemoglobin 0.3 0.3 Blood Gas A-a O2 Differential 25.0 H 153.9 H Oxyhemoglobin Percent 96.5 98.6 Total Hemoglobin 13.4 12.5 Blood Gas Temperature 37.0 37.0 Blood Gas Modality NASAL CANNULA VENT - AC FiO2 33.0 60.0 Blood Gas Critical Value Read Back Gail CALIX RN Blood Gas Notified Whom SM RT Blood Gas Notified Time 05/01/2017 2:45:58 PM 05/01/2017 6:09:15 PM Blood Gas Respiration Rate 16.0 Blood Gas Actual Respiration Rate 20 Blood Gas Tidal Volume 350.0 Blood Gas Low PEEP Setting 5.0 Test 05/01/17 17:11 Urine Color JAMES Urine Clarity TURBID A Urine pH 5.0 [address]rine Specific [place] 1.025 Urine Ketones TRACE A Urine Nitrite NEGATIVE Urine Bilirubin NEGATIVE Urine Urobilinogen NEGATIVE Urine Leukocyte Esterase NEGATIVE Urine Microscopic RBC > 182 H Urine Microscopic WBC 0 Urine Hyaline Casts FEW A Urine Mucus MANY A Urine Hemoglobin 3+ H Urine Glucose NEGATIVE Urine Total Protein 2+ H Medications Medications Current Medications Morphine Sulfate 2 mg 2 mg Q4H PRN IV PAIN LEVEL 4-7 Last administered on 11:08; Admin Dose 2 MG; Start 04/30/17 at 22:30 Meropenem/Sodium Chloride (Merrem 500mg/50 ml(Pmx)) 50 ml @ 200 mls/hr Q12 IVPB Last administered on 05/01/17 09:01; Admin Dose 200 MLS/HR; Start at 09:00 Ondansetron HCl (Zofran Inj) 4 mg Q6H PRN IV NAUSEA AND/OR VOMITING; Start at 23:00 Acetaminophen 650 mg 650 mg Q6H PRN PO PAIN AND OR ELEVATED TEMP; Start at 23:00 Vancomycin HCl/ Sodium Chloride (Vancocin/NS) 150 ml @ 75 mls/hr Q24H IVPB ; Start 05/01/17 at 19:00 Miscellaneous Information (Pending Santyl Order For Wound Care) This patient kaur... PRN PRN XX WOUND CARE; Start 05/01/17 at 12:00 Collagenase (Santyl) 1 applic DAILY TOP Last administered on 05/01/17 13:16; Admin Dose 1 APPLIC; Start 05/01/17 at 13:00 Heparin Sodium (Porcine) 5000 unit 5,000 unit BID SC ; Start 05/02/17 at 09:00 Propofol (Diprivan) 100 ml @ 1.554 mls/ hr Q12H IV Last administered on 17:12; Admin Dose 3.108 MLS/HR; Start 05/01/17 at 16:30 ELDER TIWARI MD May 01, 2017 18:23
[2017-05-01] MEDS: ENOXAPARIN 60 MG/0.6 ML SYG SC SCH (20:26)
[2017-05-01] MEDS: VANCOMYCIN 750 MG in SOD CHLORIDE 0.9% 150 ML IVPB SCH (20:35)
[2017-05-01 21:12] LABS: Allen Test ACCEPTAB
[2017-05-01] MEDS: SOD CHLORIDE 0.45% 1,000 ML IV SCH (22:33)
[2017-05-02] VITALS (104 sets, daily range): BP systolic 92–151; BP diastolic 35–92; PULSE 83–125; RESP 13–33
--- NOTE | 2017-05-02 02:01 | CONS ---
DATE OF ADMISSION: 04/30/2017 DATE OF CONSULTATION: 05/01/2017 REFERRING PHYSICIAN: Dr. Lambert. REASON FOR CONSULTATION: For evaluation of impending respiratory failure. HISTORY OF PRESENT ILLNESS: Ms. Grace is an 86-year-old white lady who was brought into the emergency room with a few days history of shortness of breath. Upon evaluation, chest x-ray was done, which is showing complete whiteout of the left lung. Also, an ABG was done, which is showing severe hypercapnic respiratory failure with respiratory acidosis. The patient was put on BiPAP but became completely unresponsive, requiring transfer to ICU, where the patient was immediately intubated by myself without difficulty at bedside. PAST MEDICAL HISTORY: 1. Left breast cancer. Extent of metastasis or any spread is unknown. 2. History of right breast cyst. 3. History of arthritis. MEDICATION: 1. Cefepime 1 g q.12 hours was given x1 in the ER yesterday. 2. The patient is currently on meropenem 500 mg q.12 hours. 3. Vancomycin intravenously being dosed by the pharmacy. 4. Normal saline was given IV fluid bolus. 5. Lovenox 40 mg a day. 6. Morphine on a p.r.n. basis. ALLERGIES: PENICILLIN. SOCIAL HISTORY/FAMILY HISTORY/OCCUPATION HISTORY: Not available. REVIEW OF SYSTEMS: Unable to be obtained. PHYSICAL EXAMINATION: GENERAL: Elderly woman, unresponsive on BiPAP. VITAL SIGNS: Temperature is 98 degrees Fahrenheit, respiratory rate is 35 per minute, pulse 110 per minute, blood pressure is 132/62, O2 sat 92 percent on 100 percent FiO2 on BiPAP. HEENT: Supple neck The patient does have multiple carious teeth. Pupils are small bilaterally. No masses. No lymphadenopathy. No thyromegaly. No neck bruits. CHEST: Diminished breath sounds throughout with absent breath sounds involving left lung. There is a large left breast tumor, S1, S2 audible. No murmurs. Tachycardic. Regular rhythm. ABDOMEN: Scaphoid. No organomegaly. Bowel sounds are sluggish to absent. EXTREMITIES: No edema. TIGHT COOPER: Patient is unresponsive. IMAGING STUDIES: Chest x-ray was reviewed, which is showing complete whiteout of the left lung. LABORATORY: ABG done at 2:20 p.m. on nasal cannula, 33 percent FiO2: pH is 7.14, CO2 of 95, PO2 of 99. Sodium 144, potassium 4.3, chloride 112, bicarb 27, creatinine 0.5, BUN 29. AST of 57, ALT of 48, lactic acid 2.6. White count 7.3, hemoglobin 12.5, platelet count of 316. ASSESSMENT AND RECOMMENDATIONS: 1. Patient admitted with respiratory failure, due to extensive left breast malignancy, with possibly lung metastasis with complete whiteout of the left lung. 2. Respiratory failure with severe hypercapnia and respiratory acidosis. RECOMMENDATIONS: Patient was intubated at bedside without difficulty. Continue current ventilator support, as well as antibiotics. The patient is currently being set on AC of 14, tidal volume of 350, PEEP of 5, and FiO2 to be titrated to keep O2 saturation around 94 percent. Family will be contacted for code status. Prognosis appears quite poor. Dictated By: Omer Kim MD /german/abi /Document#: [id number]
[2017-05-02] MEDS: PROPOFOL 100 ML IV SCH ×4 (02:26→21:57)
[2017-05-02] MEDS ORDERED: SOD CHLORIDE 0.9% 1,000 ML IV ONE (02:30)
[2017-05-02 05:49] LABS: HEMOGLOBIN 10.9 g/dl (12.0-16.0); LYMPHOCYTES # 0.5 10^3/ul (0.8-2.9); LYMPHOCYTES % 5.3 % (15.0-51.0); MEAN CORPUSCULAR HEMOGLOBIN 29.6 pg (29.0-33.0); MEAN CORPUSCULAR HGB CONC 32.1 g/dl (32.0-37.0); MEAN CORPUSCULAR VOLUME 92.4 fl (82.0-101.0); MEAN PLATELET VOLUME 10.5 fl (7.4-10.4); MONOCYTE # 0.6 10^3/ul (0.3-0.9); NEUTROPHIL # 7.8 10^3/ul (1.6-7.5); NEUTROPHILS % 87.4 % (39.0-77.0); PLATELET COUNT 298 10^3/UL (140-415); RED BLOOD COUNT 3.68 10^6/ul (4.20-5.40); RED CELL DISTRIBUTION WIDTH 16.1 % (11.5-14.5); WHITE BLOOD COUNT 8.9 10^3/ul (4.8-10.8)
[2017-05-02 05:50] LABS: ABNORMAL IP MESSAGE 1
[2017-05-02 06:21] LABS: POSITIVE DIFF @See below
[2017-05-02 06:51] LABS: ALBUMIN 2.6 g/dl (3.3-4.9); ALBUMIN/GLOBULIN RATIO 0.81; BILIRUBIN,INDIRECT 0.2 mg/dl (0-1.1); BILIRUBIN,TOTAL 0.2 mg/dl (0.2-1.3); CALCIUM 8.9 mg/dl (8.4-10.2); CREATININE 0.66 mg/dl (0.44-1.00); MAGNESIUM 2.2 mg/dl (1.7-2.5); POTASSIUM 4.2 mmol/L (3.5-5.1); TOTAL PROTEIN 5.8 g/dl (6.1-8.1)
[2017-05-02] MEDS ORDERED: HEPARIN 5,000 UNIT/0.5 ML VIAL SC SCH (09:00)
--- NOTE | 2017-05-02 09:08 | RADRPT ---
PROCEDURE: XR Chest. CLINICAL INDICATION: Respiratory failure TECHNIQUE: An AP view of the chest was obtained. COMPARISON: Chest x-ray dated 05/01/2017 FINDINGS: The endotracheal tube tip is approximately 2.6 cm above the annamarie. The tip of the enteric tube ex tends below the left diaphragm. There is complete opacification of the left thorax. There is prominence of the right lung interstiti al markings with small right pleural effusion. No pneumothorax is seen. The cardiomediastinal silho uette is obscured. Calcifications are seen within the aortic arch. The osseous structures demonstra te senescent changes. IMPRESSION: 1. Complete opacification of the left thorax. No significant interval change. 2. Prominence of the right lung interstitial markings, may reflect mild underlying interstitial valdemar ma or chronic lung changes. 3. Small right pleural effusion. 4. Aortic atherosclerosis. 5. Tubes and lines, as described above. RPTAT: HH .Arleth Everett MD, MD Date Time Electronically viewed and signed by .Arleth Everett MD, on 05/02/2017 07:07 .Becky/
--- NOTE | 2017-05-02 09:08 | PRO ---
DATE OF PROCEDURE: 05/01/2017 ORAL INTUBATION PROCEDURE NOTE Time of procedure: 4:05 p.m. This was an emergent procedure. The patient was in severe respiratory failure, with marked respiratory acidosis, as well as severe hypercapnia. Patient was given etomidate 20 mg IV push, followed by succinylcholine 60 mg IV push, followed by oral intubation by 7.5 endotracheal tube. Direct visualization of vocal cords was achieved, and endotracheal tube traversed through the vocal cords. A chest x-ray has been ordered. Dictated By: Omer Kim MD /german/darnell /Document#: [id number]
[2017-05-02 09:42] LABS: AADO2 Arterial 82.1 mmHg (7.0-24.0); Arterial Base Excess -1.3 mmol/L (-3.0-3); Arterial COHb 0.3 % (0.0-3.0); Arterial Fraction of Oxyhgb 96.5 % (93.0-99.0); Arterial HCO3 22.6 mmol/L (22.0-26.0); Arterial MetHb 0.3 % (0.0-1.5); Arterial Total Hemglobin 11.7 g/dl (12.0-18.0); MODE VENT - AC
[2017-05-02] MEDS: ENOXAPARIN 60 MG/0.6 ML SYG SC SCH ×2 (10:05→20:31)
--- NOTE | 2017-05-02 10:10 | CONS ---
Date/Time of Note Date/Time of Note DATE: 05/02/17 TIME: 10:03 Consult Date/Type/Reason Admit Date/Time Apr 30, 2017 at 16:58 Initial Consult Date 05/01/17 Type of Consultation: Pulmonary Ordering Provider: VALDEZ LOVE MD Subjective Patient remains stable on mechanical ventilation following recent intubation. Continues low-dose vasopressors. Currently intubated and sedated. Objective Vital Signs Date Time Temp Pulse Resp B/P Pulse Ox O2 Delivery O2 Flow Rate FiO2 05/02/17 08:00 105 05/02/17 06:45 16 111/50 100 05/02/17 06:00 Mechanical Ventilator 05/02/17 05:16 30 05/02/17 04:00 99.2 05/01/17 14:33 4.0 Intake and Output 05/01/17 05/01/17 05/02/17 15:00 23:00 07:00 Intake Total 200 ml 634.07 ml 1429.09 ml Output Total 370 ml 160 ml Balance 200 ml 264.07 ml 1269.09 ml Exam PHYSICAL EXAMINATION GENERAL: Elderly lady on mechanical ventilation, comfortable at rest. VITAL SIGNS: see below. HEENT: Pupils equal, round, and reactive to light. CARDIAC: S1, S2, 1/6 systolic ejection murmur CHEST: Diminished air entry bilaterally. ABDOMEN: Mildly distended. Bowel sounds present no guarding or rebound EXTREMITIES: No cyanosis, clubbing edema +1 NEUROLOGIC: Generalized weakness Results/Medications Result Diagram: 05/02/17 0527 05/02/17 0527 Results 24 hrs Laboratory Tests Test 05/01/17 14:20 05/01/17 16:15 05/01/17 17:11 05/02/17 05:27 Blood Gas Specimen Source Blood arterial Blood arterial Arterial Blood Date Drawn 05/01/2017 2:38:25 PM 05/01/2017 6:00:43 PM Arterial Blood pH (Temp corrected) 7.146 *L 7.356 Arterial Blood pCO2 (Temp correct) 95.1 *H 49.1 H Arterial Blood pO2 (Temp corrected) 99.3 H 219.9 H Arterial Blood HCO3 32.1 H 26.9 H Arterial Blood Base Excess 0.4 0.8 Arterial Blood Oxygen Saturation 97.1 99.2 Rock Test ACCEPTAB ACCEPTAB Arterial Blood Gas Puncture Site Right Radial Right Radial Arterial Blood Carboxyhemoglobin 0.3 0.3 Arterial Blood Methemoglobin 0.3 0.3 Blood Gas A-a O2 Differential 25.0 H 153.9 H Oxyhemoglobin Percent 96.5 98.6 Total Hemoglobin 13.4 12.5 Blood Gas Temperature 37.0 37.0 Blood Gas Modality NASAL CANNULA VENT - AC FiO2 33.0 60.0 Blood Gas Critical Value Read Back Gail CALIX RN Blood Gas Notified Whom SM RT Blood Gas Notified Time 05/01/2017 2:45:58 PM 05/01/2017 6:09:15 PM Blood Gas Respiration Rate 16.0 Blood Gas Actual Respiration Rate 20 Blood Gas Tidal Volume 350.0 Blood Gas Low PEEP Setting 5.0 Urine Color JAMES Urine Clarity TURBID A Urine pH 5.0 Urine Specific [place] 1.025 Urine Ketones TRACE A Urine Nitrite NEGATIVE Urine Bilirubin NEGATIVE Urine Urobilinogen NEGATIVE Urine Leukocyte Esterase NEGATIVE Urine Microscopic RBC > 182 H Urine Microscopic WBC 0 Urine Hyaline Casts FEW A Urine Mucus MANY A Urine Hemoglobin 3+ H Urine Glucose NEGATIVE Urine Total Protein 2+ H White Blood Count 8.9 # Red Blood Count 3.68 L Hemoglobin 10.9 L Hematocrit 34.0 L Mean Corpuscular Volume 92.4 Mean Corpuscular Hemoglobin 29.6 Mean Corpuscular Hemoglobin Concent 32.1 Red Cell Distribution Width 16.1 H Platelet Count 298 Mean Platelet Volume 10.5 H Neutrophils % 87.4 H Lymphocytes % 5.3 L Monocytes % 7.0 Eosinophils % 0.0 Basophils % 0.0 Nucleated Red Blood Cells % 0.0 Neutrophils # 7.8 H Lymphocytes # 0.5 L Monocytes # 0.6 Eosinophils # 0.0 Basophils # 0.0 Nucleated Red Blood Cells # 0.0 Sodium Level 146 H Potassium Level 4.2 Chloride Level 113 H Carbon Dioxide Level 27 Anion Gap 10 Blood Urea Nitrogen 33 H Creatinine 0.66 Glucose Level 99 Calcium Level 8.9 Magnesium Level 2.2 Total Bilirubin 0.2 Direct Bilirubin 0.00 Indirect Bilirubin 0.2 Aspartate Amino Transf (AST/SGOT) 40 Alanine Aminotransferase (ALT/SGPT) 48 Alkaline Phosphatase 59 Total Protein 5.8 L Albumin 2.6 L Globulin 3.20 Albumin/Globulin Ratio 0.81 Test 05/02/17 07:00 Blood Gas Specimen Source Blood arterial Arterial Blood Date Drawn 05/02/2017 7:21:17 AM Arterial Blood pH (Temp corrected) 7.426 Arterial Blood pCO2 (Temp correct) 35.1 Arterial Blood pO2 (Temp corrected) 90.6 H Arterial Blood HCO3 22.6 Arterial Blood Base Excess -1.3 Arterial Blood Oxygen Saturation 97.1 Rock Test ACCEPTAB Arterial Blood Gas Puncture Site Right Radial Arterial Blood Carboxyhemoglobin 0.3 Arterial Blood Methemoglobin 0.3 Blood Gas A-a O2 Differential 82.1 H Oxyhemoglobin Percent 96.5 Total Hemoglobin 11.7 L Blood Gas Temperature 37.0 Blood Gas Respiration Rate 16.0 Blood Gas Actual Respiration Rate 16 Blood Gas Modality VENT - AC FiO2 30.0 Blood Gas Tidal Volume 350.0 Blood Gas Low PEEP Setting 5.0 Blood Gas Notified Whom TM Blood Gas Notified Time 05/02/2017 7:37:26 AM Medications Current Medications Morphine Sulfate (morphine) 2 mg Q4H PRN IV PAIN LEVEL 4-7 Last administered on 05/01/17 11:08; Admin Dose 2 MG; Start 04/30/17 at 22:30 Ondansetron HCl (Zofran Inj) 4 mg Q6H PRN IV NAUSEA AND/OR VOMITING; Start at 23:00 Acetaminophen 650 mg 650 mg Q6H PRN PO PAIN AND OR ELEVATED TEMP; Start at 23:00 Vancomycin HCl/ Sodium Chloride (Vancocin/NS) 150 ml @ 75 mls/hr Q24H IVPB Last administered on 05/01/17 20:35; Admin Dose 75 MLS/HR; Start 05/01/17 at 19 :00 [facility] This patient kaur... PRN PRN XX WOUND CARE; Start 05/01/17 at 12:00 Collagenase 1 applic 1 applic DAILY TOP Last administered on 05/01/17 13:16; Admin Dose 1 APPLIC; Start 05/01/17 at 13:00 Propofol (Diprivan) 100 ml @ 1.554 mls/ hr Q12H IV Last administered on 08:01; Admin Dose 15.518 MLS/HR; Start 05/01/17 at 16:30 Enoxaparin Sodium 50 mg 50 mg Q12 SC Last administered on 05/01/17 20:26; Admin Dose 50 MG; Start 05/01/17 at 19:00 Sodium Chloride (1/2 NS) 1,000 ml @ 70 mls/hr [id number] IV Last administered on 05/01/17t 22:33; Admin Dose 70 MLS/HR; Start 05/01/17 at 22:30 Assessment/Plan Chief Complaint/Hosp Course Assessment 1. Hypoxemic and hypercapnic respiratory failure 2. Large left pleural effusion versus central obstructive lung lesion. 3. Metastatic breast cancer 4. Failure to thrive Plan 1. CT and left-sided thoracentesis. 2. Continue mechanical ventilation 3. Discussed with primary care team. Probably leaning towards comfort care which is appropriate. Problems: JONATHAN RYAN MD, [facility] May 02, 2017 10:10
--- NOTE | 2017-05-02 10:12 | RADRPT ---
PROCEDURE: BREAST ULTRASOUND CLINICAL INDICATION: 86 year-old female with a left breast mass. TECHNIQUE: Targeted left breast ultrasound is performed. COMPARISON: None. FINDINGS: The study is limited by overlying bandages. Limited sonographic views show an irregular mass in the left upper inner quadrant measuring at least 5 cm in diameter. IMPRESSION: Suspicious left upper inner quadrant mass measuring at least 5 cm. Recommend mammographic correlatio n. If mammographic correlation is not feasible, recommend proceeding with ultrasound guided biopsy. The left axilla should also be sonographically examined on the day of the biopsy for any abnormal ly mph nodes. ACR BIRADS 4 (SUSPICIOUS ABNORMALITY) RPTAT: UU .Pj Mccray MD, Date Time Electronically viewed and signed by .Pj Mccray MD, on 05/02/2017 10:11 .Z/
[2017-05-02] MEDS ORDERED: COLLAGENASE 30 GM TUBE TOP PRN (10:30)
[2017-05-02] MEDS: COLLAGENASE 30 GM TUBE TOP SCH ×2 (12:23→12:24)
[2017-05-02] MEDS: SOD CHLORIDE 0.45% 1,000 ML IV SCH ×2 (12:48→17:31)
--- NOTE | 2017-05-02 13:04 | PN ---
Date/Time of Note Date/Time of Note DATE: 05/02/17 TIME: 12:38 Assessment/Plan Lines/Catheters IV Catheter Type (from Nrs): Peripheral IV Ibarra in Place (from Nrs): Yes Assessment/Plan Chief Complaint/Hosp Course 1. Left breast fungating mass/wound: family would like no aggressive/invasive diagnostic interventions -hospice, palliative -local wound care 2. Respiratory failure: 2/2 #[address] effusion: intubated; hypoxemic, hypercapnic -improving -considering thora for palliation -supportive 3. Obtunded: 2/2 morphine vs. other -abg -narcan -judicious pain meds 4. Lactic acidosis: improved 5. Hypoalbuminemia: malnutrition + inflammation -nutrition optimization -as above Patient seen and examined in collaboration with Dr. Monico Kay. Thank you. Problems: Subjective 24 Hr Interval Summary Patient in icu care. Intubated, sedated. Non verbal indicators of pain not present. Appears comfortable on vent. No fevers, chills, vomiting, dysuria, zs. Family would like no aggressive/invasive diagnostic interventions. Exam/Review of Systems Vital Signs Vitals Vital Signs Date Time Temp Pulse Resp B/P Pulse Ox O2 Delivery O2 Flow Rate FiO2 05/02/17 11:10 88 16 100 30 05/02/17 10:15 117/52 Mechanical Ventilator 05/02/17 08:00 98.3 05/01/17 14:33 4.0 Intake and Output 05/01/17 05/01/17 05/02/17 15:00 23:00 07:00 Intake Total 200 ml 634.07 ml 1429.09 ml Output Total 370 ml 165 ml Balance 200 ml 264.07 ml 1264.09 ml Exam Free Text/Dictation Constitutional: alert, oriented, other (obtunded, withrdraws from pain) Psych: nl mood/affect Head: atraumatic, normocephalic Eyes: nl lids, nl sclera ENMT: No mucosa pink and moist (dry), intubated Neck: jvd, non-tender, supple Respiratory: diminished breath sounds, other (left breast discoloration, much smaller than other breast, hardened) Cardiovascular: edema (left arm and BLE edema), nl pulses, other (ST), regular rate and rhythm Gastrointestinal: non-tender, soft, No distended Musculoskeletal: swelling Extremities: pitting pedal edema (with +BUE) Skin: other (left breast wounds-large drainage; ) Results Result Diagram: 05/02/17 0527 05/02/17 0527 LEANDRO AGUILAR NP May 02, 2017 12:50
--- NOTE | 2017-05-02 14:02 | PN ---
Date/Time of Note Date/Time of Note DATE: 05/02/17 TIME: 13:57 Assessment/Plan VTE Prophylaxis VTE Prophylaxis Intervention: SCD's Lines/Catheters IV Catheter Type (from Nrsg): Peripheral IV Urinary Cath still in place: Yes Reason Cath still needed: other (indicate) (critically ill) Assessment/Plan Assessment/Plan 86 yo F presented with c/o SOB found to have a large L breast/chest wall fungating mass highly suspicious for malignancy. 9.18 went into hypercapnic respiratory distress likely 2/2 complications from this mass. Goals of care conversation had with pt's daughter, additional family, and sw today. daughter very much does not want to prolong pt's suffering and wants to limit intervention to those meant to improve pt's quality as opposed to quantity of life #hypercapnic respiratory failure: etio unclear. possibly from morphine but did not improve with narcan, possibly PE as complication of chest mass, possibly from pleural effusion burden -cont empiric ATC -thora today #L breast/chest mass: -pain control PRN -sw cs for hospice Code status: DNR likely discharge to hospice ([facility]IP v SNF) in 1-2 days. Will see if pt can be extubated following thora critical care time: 30 minutes Subjective 24 Hr Interval Summary Free Text/Dictation Pt on increasing amounts of sedation 2/2 agitation Exam/Review of Systems Vital Signs Vitals Vital Signs Date Time Temp Pulse Resp B/P Pulse Ox O2 Delivery O2 Flow Rate FiO2 05/02/17 12:00 89 05/02/17 11:10 16 100 30 05/02/17 10:15 117/52 Mechanical Ventilator 05/02/17 08:00 98.3 05/01/17 14:33 4.0 Intake and Output 05/01/17 05/01/17 05/02/17 15:00 23:00 07:00 Intake Total 200 ml 634.07 ml 1429.09 ml Output Total 370 ml 165 ml Balance 200 ml 264.07 ml 1264.09 ml Exam intubated and sedated chest mass unchanged no L sided breath sounds abd soft no rashes Results Result Diagram: 05/02/17 0527 05/02/17 0527 Results 24 hrs Laboratory Tests Test 05/01/17 14:20 05/01/17 16:15 05/01/17 17:11 05/02/17 05:27 Blood Gas Specimen Source Blood arterial Blood arterial Arterial Blood Date Drawn 05/01/2017 2:38:25 PM 05/01/2017 6:00:43 PM Arterial Blood pH (Temp corrected) 7.146 *L 7.356 Arterial Blood pCO2 (Temp correct) 95.1 *H 49.1 H Arterial Blood pO2 (Temp corrected) 99.3 H 219.9 H Arterial Blood HCO3 32.1 H 26.9 H Arterial Blood Base Excess 0.4 0.8 Arterial Blood Oxygen Saturation 97.1 99.2 Rock Test ACCEPTAB ACCEPTAB Arterial Blood Gas Puncture Site Right Radial Right Radial Arterial Blood Carboxyhemoglobin 0.3 0.3 Arterial Blood Methemoglobin 0.3 0.3 Blood Gas A-a O2 Differential 25.0 H 153.9 H Oxyhemoglobin Percent 96.5 98.6 Total Hemoglobin 13.4 12.5 Blood Gas Temperature 37.0 37.0 Blood Gas Modality NASAL CANNULA VENT - AC FiO2 33.0 60.0 Blood Gas Critical Value Read Back Gail CALIX RN Blood Gas Notified Whom RT Blood Gas Notified Time 05/01/2017 2:45:58 PM 05/01/2017 6:09:15 PM Blood Gas Respiration Rate 16.0 Blood Gas Actual Respiration Rate 20 Blood Gas Tidal Volume 350.0 Blood Gas Low PEEP Setting 5.0 Urine Color JAMES Urine Clarity TURBID A Urine pH 5.0 Urine Specific Leburn 1.025 Urine Ketones TRACE A Urine Nitrite NEGATIVE Urine Bilirubin NEGATIVE Urine Urobilinogen NEGATIVE Urine Leukocyte Esterase NEGATIVE Urine Microscopic RBC > 182 H Urine Microscopic WBC 0 Urine Hyaline Casts FEW A Urine Mucus MANY A Urine Hemoglobin 3+ H Urine Glucose NEGATIVE Urine Total Protein 2+ H White Blood Count 8.9 # Red Blood Count 3.68 L Hemoglobin 10.9 L Hematocrit 34.0 L Mean Corpuscular Volume 92.4 Mean Corpuscular Hemoglobin 29.6 Mean Corpuscular Hemoglobin Concent 32.1 Red Cell Distribution Width 16.1 H Platelet Count 298 Mean Platelet Volume 10.5 H Neutrophils % 87.4 H Lymphocytes % 5.3 L Monocytes % 7.0 Eosinophils % 0.0 Basophils % 0.0 Nucleated Red Blood Cells % 0.0 Neutrophils # 7.8 H Lymphocytes # 0.5 L Monocytes # 0.6 Eosinophils # 0.0 Basophils # 0.0 Nucleated Red Blood Cells # 0.0 Sodium Level 146 H Potassium Level 4.2 Chloride Level 113 H Carbon Dioxide Level 27 Anion Gap 10 Blood Urea Nitrogen 33 H Creatinine 0.66 Glucose Level 99 Calcium Level 8.9 Magnesium Level 2.2 Total Bilirubin 0.2 Direct Bilirubin 0.00 Indirect Bilirubin 0.2 Aspartate Amino Transf (AST/SGOT) 40 Alanine Aminotransferase (ALT/SGPT) 48 Alkaline Phosphatase 59 Total Protein 5.8 L Albumin 2.6 L Globulin 3.20 Albumin/Globulin Ratio 0.81 Test 05/02/17 07:00 Blood Gas Specimen Source Blood arterial Arterial Blood Date Drawn 05/02/2017 7:21:17 AM Arterial Blood pH (Temp corrected) 7.426 Arterial Blood pCO2 (Temp correct) 35.1 Arterial Blood pO2 (Temp corrected) 90.6 H Arterial Blood HCO3 22.6 Arterial Blood Base Excess -1.3 Arterial Blood Oxygen Saturation 97.1 Rock Test ACCEPTAB Arterial Blood Gas Puncture Site Right Radial Arterial Blood Carboxyhemoglobin 0.3 Arterial Blood Methemoglobin 0.3 Blood Gas A-a O2 Differential 82.1 H Oxyhemoglobin Percent 96.5 Total Hemoglobin 11.7 L Blood Gas Temperature 37.0 Blood Gas Respiration Rate 16.0 Blood Gas Actual Respiration Rate 16 Blood Gas Modality VENT - AC FiO2 30.0 Blood Gas Tidal Volume 350.0 Blood Gas Low PEEP Setting 5.0 Blood Gas Notified Whom TM Blood Gas Notified Time 05/02/2017 7:37:26 AM Medications Medications Current Medications Morphine Sulfate (morphine) 2 mg Q4H PRN IV PAIN LEVEL 4-7 Last administered on 05/01/17 11:08; Admin Dose 2 MG; Start 04/30/17 at 22:30 Ondansetron HCl (Zofran Inj) 4 mg Q6H PRN IV NAUSEA AND/OR VOMITING; Start at 23:00 Acetaminophen 650 mg 650 mg Q6H PRN PO PAIN AND OR ELEVATED TEMP; Start at 23:00 Vancomycin HCl/ Sodium Chloride (Vancocin/NS) 150 ml @ 75 mls/hr Q24H IVPB Last administered on 05/01/17 20:35; Admin Dose 75 MLS/HR; Start 05/01/17 at 19 :00 Miscellaneous Information (Pending [facility] Order For Wound Care) This patient kaur... PRN PRN XX WOUND CARE; Start 05/01/17 at 12:00 Collagenase 1 applic 1 applic DAILY TOP Last administered on 05/02/17 12:23; Admin Dose 1 APPLIC; Start 05/01/17 at 13:00 Propofol (Diprivan) 100 ml @ 1.554 mls/ hr Q12H IV Last administered on 08:01; Admin Dose 15.518 MLS/HR; Start 05/01/17 at 16:30 Enoxaparin Sodium 50 mg 50 mg Q12 SC Last administered on 05/02/17 10:05; Admin Dose 50 MG; Start 05/01/17 at 19:00 Sodium Chloride (1/2 NS) 1,000 ml @ 70 mls/hr [id number] IV Last administered on 05/01/17 22:33; Admin Dose 70 MLS/HR; Start 05/01/17 at 22:30 Collagenase (Santyl) 1 applic DAILY TOP Last administered on 05/02/17 12:24; Admin Dose 1 APPLIC; Start 05/02/17 at 11:00 Collagenase (Santyl) 1 applic PRN PRN TOP WOUND CARE; Start 05/02/17 at 10:30 ELDER TIWARI MD May 02, 2017 14:02
[2017-05-02] MEDS: VANCOMYCIN 750 MG in SOD CHLORIDE 0.9% 150 ML IVPB SCH (18:08)
[2017-05-03] VITALS (53 sets, daily range): BP systolic 91–142; BP diastolic 52–88; PULSE 0–131; RESP 15–32
[2017-05-03] MEDS: SOD CHLORIDE 0.45% 1,000 ML IV SCH ×2 (03:06→10:10)
[2017-05-03] MEDS: PROPOFOL 100 ML IV SCH (03:11)
[2017-05-03 05:40] LABS: BASOPHILS % 0.1 % (0.0-2.0); EOSINOPHILS % 0.2 % (0.0-7.0); HEMATOCRIT 31.8 % (37.0-47.0); HEMOGLOBIN 10.5 g/dl (12.0-16.0); LYMPHOCYTES # 0.8 10^3/ul (0.8-2.9); LYMPHOCYTES % 7.9 % (15.0-51.0); MEAN CORPUSCULAR VOLUME 90.9 fl (82.0-101.0); MEAN PLATELET VOLUME 10.6 fl (7.4-10.4); MONOCYTE # 0.7 10^3/ul (0.3-0.9); MONOCYTES % 7.2 % (0.0-11.0); NEUTROPHILS % 84.3 % (39.0-77.0); PLATELET COUNT 273 10^3/UL (140-415); WHITE BLOOD COUNT 9.4 10^3/ul (4.8-10.8)
[2017-05-03 06:18] LABS: CALCIUM 8.9 mg/dl (8.4-10.2); CREATININE 0.64 mg/dl (0.44-1.00); POTASSIUM 3.9 mmol/L (3.5-5.1)
[2017-05-03 07:32] LABS: AADO2 Arterial 74.9 mmHg (7.0-24.0); Allen Test ACCEPTAB; Arterial Base Excess -2.5 mmol/L (-3.0-3); Arterial COHb 0.3 % (0.0-3.0); Arterial Fraction of Oxyhgb 96.8 % (93.0-99.0); Arterial HCO3 21.5 mmol/L (22.0-26.0); Arterial MetHb 0.2 % (0.0-1.5); Arterial Total Hemglobin 12.2 g/dl (12.0-18.0); MODE VENT - AC
--- NOTE | 2017-05-03 08:13 | RADRPT ---
PROCEDURE: Chest Radiograph. CLINICAL INDICATION: Shortness of breath TECHNIQUE: Single frontal chest radiograph. COMPARISON: Chest radiograph 05/02/2017 FINDINGS: An endotracheal tube remains in place with distal tip approximately 1.3 cm above the annamarie. Nasogas tric tube remains in place with distal tip coursing below the diaphragm. Heart size is poorly evalua rena. There is stable complete whiteout of the left hemithorax. There is mild hazy opacification of the right lung base, also stable.. The bones are intact. IMPRESSION: 1. Stable radiographic appearance of the chest compared to 05/02/2017. RPTAT: HJBF .Helder Hightower MD, Date Time Electronically viewed and signed by .Helder Hightower MD, MD on 05/03/2017 08:13 .B/
[2017-05-03] MEDS: ENOXAPARIN 60 MG/0.6 ML SYG SC SCH (09:00)
[2017-05-03] MEDS: COLLAGENASE 30 GM TUBE TOP SCH ×2 (09:03→09:04)
[2017-05-03] MEDS ORDERED: morphine (DRIP) 100 MG/100 ML 100 ML IV SCH ×2 (11:00→13:30)
--- NOTE | 2017-05-03 11:09 | DS ---
Date/Time of Note Date/Time of Note DATE: 05/03/17 TIME: 11:01 Discharge Summary Admission/Discharge Info Admit Date/Time Apr 30, 2017 at 16:58 Discharge Date/Time Discharge Diagnosis chest wall mass Consults general surgery, pulmonology Procedures 04.30 CXR IMPRESSION: 1. Complete opacification of the left hemithorax with shift of the mediastinal structures towards the right, consistent with a space occupying process, possibly an underlying effusion. The mediastinal structures rightward shift may be accentuated due to the mid thoracic dextroscoliosis. 2. Vascular calcifications consistent with atherosclerosis. 3. Abnormal density overlying the chest wall, possibly external to the patient , consistent with the clinical findings of a fungating left breast mass. Hx of Present Illness This is an 86-year-old female with a history of arthritis and right breast cyst status post removal who presented to the emergency department complaining of shortness of breath, left upper extremity swelling. Shortness of breath has been progressively getting worse over the past few days. She also reported generalized weakness and lack of energy. On physical exam, pt has a hard fungating hard left breast mass with significant left upper ext swelling with pitting edema. Patient thinks that she was bitten by a bug a while ago. She is very frail, said she has been living alone. The last time she saw a Doctor was 30 years ago. She denied chest pain, fever, chills, nausea, vomiting, abdominal pain or urinary symptoms. Chest x-ray shows the followin. Complete opacification of the left hemithorax with shift of the mediastinal structures towards the right, consistent with a space occupying process, possibly an underlying effusion. The mediastinal structures rightward shift may be accentuated due to the mid thoracic dextroscoliosis. 2. Vascular calcifications consistent with atherosclerosis. 3. Abnormal density overlying the chest wall, possibly external to the patient , consistent with the clinical findings of a fungating left breast mass. . Hospital Course Pt admitted for SOB, found to have large L chest mass with large L sided pleural effusion. Suspect breast ca with malignant effusion. 05.01 pt with progressive respiratory acidosis likely 2/2 effusion. Family contacted but as daughter was still driving down from [facility] she was not yet ready for comfort measures until she was able to see her mother, thus pt intubated on 05.01. Thoracentesis ordered for L pleural effusion to see if this would help pt' s respiratory status but daughter requested pt be transitioned to comfort measures only and extubation in line with pt's wishes and character. SW arranged for hospice eval. Pt transferred to care of [facility] and comfort care orders initiated. Home Meds No Active Prescriptions or Reported Meds Follow-up Plan [facility] Primary Care Provider Care Physician No Primary Pending Labs Laboratory Tests Test 05/03/17 04:55 05/03/17 07:00 White Blood Count 9.410^3/ul (4.8-10.8) Red Blood Count 3.5010^6/ul (4.20-5.40) Hemoglobin 10.5g/dl (12.0-16.0) Hematocrit 31.8% (37.0-47.0) Mean Corpuscular Volume 90.9fl (82.0-101.0) Mean Corpuscular Hemoglobin 30.0pg (29.0-33.0) Mean Corpuscular Hemoglobin Concent 33.0g/dl (32.0-37.0) Red Cell Distribution Width 16.0% (11.5-14.5) Platelet Count 01724^3/UL (140-415) Mean Platelet Volume 10.6fl (7.4-10.4) Neutrophils % 84.3% (39.0-77.0) Lymphocytes % 7.9% (15.0-51.0) Monocytes % 7.2% (0.0-11.0) Eosinophils % 0.2% (0.0-7.0) Basophils % 0.1% (0.0-2.0) Nucleated Red Blood Cells % 0.0/100WBC (0.0-0.0) Neutrophils # 8.010^3/ul (1.6-7.5) Lymphocytes # 0.810^3/ul (0.8-2.9) Monocytes # 0.710^3/ul (0.3-0.9) Eosinophils # 0.010^3/ul (0.0-0.5) Basophils # 0.010^3/ul (0.0-0.1) Nucleated Red Blood Cells # 0.010^3/ul (0.0-0.0) Sodium Level 141mmol/L (135-144) Potassium Level 3.9mmol/L (3.5-5.1) Chloride Level 112mmol/L (97-110) Carbon Dioxide Level 26mmol/L (21-31) Anion Gap 7 (8-16) Blood Urea Nitrogen 39mg/dl (7-20) Creatinine 0.64mg/dl (0.44-1.00) Glucose Level 74mg/dl (70-220) Calcium Level 8.9mg/dl (8.4-10.2) Blood Gas Specimen Source Blood arterial Arterial Blood Date Drawn 05/03/2017 7:12:44 AM Arterial Blood pH (Temp corrected) 7.410 (7.350-7.450) Arterial Blood pCO2 (Temp correct) 34.7mmhg (35-45) Arterial Blood pO2 (Temp corrected) 98.2mmHG (80-90.0) Arterial Blood HCO3 21.5mmol/L (22.0-26.0) Arterial Blood Base Excess -2.5mmol/L (-3.0-3) Arterial Blood Oxygen Saturation 97.3mmHG (95.0-100.0) Rock Test ACCEPTAB Arterial Blood Gas Puncture Site Right Radial Arterial Blood Carboxyhemoglobin 0.3% (0.0-3.0) Arterial Blood Methemoglobin 0.2% (0.0-1.5) Blood Gas A-a O2 Differential 74.9mmHg (7.0-24.0) Oxyhemoglobin Percent 96.8% (93.0-99.0) Total Hemoglobin 12.2g/dl (12.0-18.0) Blood Gas Temperature 37.0C Blood Gas Respiration Rate 16.0 Blood Gas Actual Respiration Rate 17 Blood Gas Modality VENT - AC FiO2 30.0% Blood Gas Tidal Volume 350.0mL Blood Gas Low PEEP Setting 5.0cmH2O Blood Gas Notified Whom TM Blood Gas Notified Time 05/03/2017 7:32:27 AM ELDER TIWARI MD May 03, 2017 11:09
[2017-05-03] MEDS ORDERED: DIMETHICONE STICK TOP PRN (12:00)
[2017-05-03] MEDS ORDERED: ARTIFICIAL TEARS 15 ML OPH BOTH EYES PRN (12:00)
[2017-05-03] MEDS ORDERED: ALBUTEROL/IPRATROPIUM (NEB) 3 ML AMP HHN PRN (12:30)
[2017-05-03] MEDS ORDERED: morphine 10 MG INJ IV ONE (12:30)
[2017-05-03] MEDS ORDERED: LORAZEPAM 2 MG INJ IV ONE (12:30)
[2017-05-03] MEDS ORDERED: LORAZEPAM 2 MG INJ IV PRN (12:30)
[2017-05-03] MEDS ORDERED: ONDANSETRON 4 MG INJ IV PRN (12:30)
[2017-05-03] MEDS ORDERED: ACETAMINOPHEN 650 MG SUPP PR PRN (12:30)
[2017-05-03] MEDS ORDERED: ATROPINE SULFATE 1% 5ML SL PRN (13:30)
--- NOTE | 2017-05-03 13:37 | CONS ---
Date/Time of Note Date/Time of Note DATE: 05/03/17 TIME: 13:37 Consult Date/Type/Reason Admit Date/Time Apr 30, 2017 at 16:58 Initial Consult Date 05/01/17 Type of Consultation: Pulmonary Ordering Provider: VALDEZ LOVE MD Subjective Intubated sedated pending thoracentesis Objective Vital Signs Date Time Temp Pulse Resp B/P Pulse Ox O2 Delivery O2 Flow Rate FiO2 05/03/17 12:46 2.0 05/03/17 12:30 103 19 142/56 92 Mechanical Ventilator 05/03/17 12:00 98.0 05/03/17 11:48 30 Intake and Output 05/02/17 05/02/17 05/03/17 15:00 23:00 07:00 Intake Total 684.18 ml 678.72 ml 684.32 ml Output Total 70 ml 110 ml 110 ml Balance 614.18 ml 568.72 ml 574.32 ml Exam PHYSICAL EXAMINATION GENERAL: Elderly lady on mechanical ventilation, comfortable at rest. VITAL SIGNS: see below. HEENT: Pupils equal, round, and reactive to light. CARDIAC: S1, S2, 1/6 systolic ejection murmur CHEST: Diminished air entry bilaterally. ABDOMEN: Mildly distended. Bowel sounds present no guarding or rebound EXTREMITIES: No cyanosis, clubbing edema +1 NEUROLOGIC: Generalized weakness Results/Medications Result Diagram: 05/03/17 0455 05/03/17 0455 Results 24 hrs Laboratory Tests Test 05/03/17 04:55 05/03/17 07:00 White Blood Count 9.4 Red Blood Count 3.50 L Hemoglobin 10.5 L Hematocrit 31.8 L Mean Corpuscular Volume 90.9 Mean Corpuscular Hemoglobin 30.0 Mean Corpuscular Hemoglobin Concent 33.0 Red Cell Distribution Width 16.0 H Platelet Count 273 Mean Platelet Volume 10.6 H Neutrophils % 84.3 H Lymphocytes % 7.9 L Monocytes % 7.2 Eosinophils % 0.2 Basophils % 0.1 Nucleated Red Blood Cells % 0.0 Neutrophils # 8.0 H Lymphocytes # 0.8 Monocytes # 0.7 Eosinophils # 0.0 Basophils # 0.0 Nucleated Red Blood Cells # 0.0 Sodium Level 141 Potassium Level 3.9 Chloride Level 112 H Carbon Dioxide Level 26 Anion Gap 7 L Blood Urea Nitrogen 39 H Creatinine 0.64 Glucose Level 74 Calcium Level 8.9 Blood Gas Specimen Source Blood arterial Arterial Blood Date Drawn 05/03/2017 7:12:44 AM Arterial Blood pH (Temp corrected) 7.410 Arterial Blood pCO2 (Temp correct) 34.7 L Arterial Blood pO2 (Temp corrected) 98.2 H Arterial Blood HCO3 21.5 L Arterial Blood Base Excess -2.5 Arterial Blood Oxygen Saturation 97.3 Rock Test ACCEPTAB Arterial Blood Gas Puncture Site Right Radial Arterial Blood Carboxyhemoglobin 0.3 Arterial Blood Methemoglobin 0.2 Blood Gas A-a O2 Differential 74.9 H Oxyhemoglobin Percent 96.8 Total Hemoglobin 12.2 Blood Gas Temperature 37.0 Blood Gas Respiration Rate 16.0 Blood Gas Actual Respiration Rate 17 Blood Gas Modality VENT - AC FiO2 30.0 Blood Gas Tidal Volume 350.0 Blood Gas Low PEEP Setting 5.0 Blood Gas Notified Whom TM Blood Gas Notified Time 05/03/2017 7:32:27 AM Medications Current Medications Albuterol/ Ipratropium (Duoneb) 3 ml Q6 PRN HHN SHORTNESS OF BREATH; Start at 12:30 Ondansetron HCl (Zofran Inj) 4 mg Q4H PRN IV NAUSEA AND/OR VOMITING; Start at 12:30 Lorazepam (Ativan) 1 mg Q2 PRN IV ANXIETY Last administered on 05/03/17t 12:51 ; Admin Dose 1 MG; Start 05/03/17 at 12:30 Acetaminophen (Tylenol Supp) 650 mg Q4H PRN ND PAIN OR TEMP ABOVE 38C; Start at 12:30 Atropine Sulfate 2 drop 2 drop Q2H PRN SL PRN SECRETIONS; Start 05/03/17 at 13: 30 Morphine Sulfate/ Sodium Chloride (morphine) 100 ml @ 1 mls/hr TITRATE IV ; Start 05/03/17 at 13:30; Status UNV Assessment/Plan Chief Complaint/Hosp Course Assessment 1. Hypoxemic and hypercapnic respiratory failure 2. Large left pleural effusion versus central obstructive lung lesion. Pending thoracentesis 3. Metastatic breast cancer 4. Failure to thrive Plan 1. CT and left-sided thoracentesis. 2. Continue mechanical ventilation 3. Discussed with primary care team We will discuss palliative care measures once thoracentesis is performed Problems: JONATHAN RYAN MD, [facility] May 03, 2017 13:37
--- NOTE | 2017-05-03 22:03 | DES ---
DATE OF ADMISSION: 04/30/2017 DATE OF DISCHARGE: 05/03/2017 CAUSE OF : Possible metastatic breast cancer. REASON FOR ADMISSION: Patient was an 86-year-old female who had not seen any physician for the last several decades. Came to ER with shortness of breath. Patient was in acute respiratory failure, with complete opacification of left hemithorax. Patient also was noted to have a fungating mass in the left breast. Patient had to be intubated due to respiratory distress. Patient, however, could not be extubated. Patient's family did not want any aggressive treatment. Hospice was called to provide comfort care. Patient was terminally extubated today and was put on morphine drip. Prior to extubation, patient was given IV morphine and IV Ativan. Patient was started on morphine drip at 1 mg an hour, which was increased by 1 mg every 15 minutes, and since patient remained short of breath, morphine drip was increased up to 8 mg an hour. Patient's terminal symptoms were controlled at that time. At around 2:54 p.m., patient was noted to have asystole. Patient was not breathing. There was no pulse or blood pressure. Patient was unresponsive and was pronounced at 2:54 p.m. on 05/03/2017. Patient's family was updated with the regulatory compliance director, who also happens to be there to assist in final process. During her hospitalization, patient was also seen by Dr. Seda Lambert from a hospitalist standpoint and Dr. Mckeon's group, from Pulmonary standpoint. Labs done this morning revealed WBC 9.4, hemoglobin 10.5, platelets 273. Sodium 141, potassium 3.9, BUN 39, creatinine 0.6. Prealbumin was only 12.4. Chest x-ray done this morning revealed complete whiteout of left hemithorax with shift. Dictated By: Oscar Alva MD /german/darnell /Document#: [id number]
--- NOTE | 2017-05-04 07:24 | HP ---
DATE OF ADMISSION: 04/30/2017 PRIMARY DIAGNOSIS: Possible metastatic breast cancer, comorbid acute respiratory failure, and acute kidney injury. REASON FOR ADMISSION: Patient is an 86-year-old female, who has history of osteoarthritis and history of benign right breast cyst, status post removal several years ago. The patient had not seen any physician for decades and came to ER with shortness of breath. The patient was found to have opacification of the left hemithorax with mediastinal shift and also fungating left breast mass. The patient was intubated due to acute respiratory failure and was seen by Dr. Mckeon from pulmonary standpoint. The patient underwent a breast ultrasound, which revealed left upper inner quadrant mass measuring at least 5 cm. The patient also underwent CT of the brain, which was negative for acute hemorrhage. The patient remained frail and weak and family requested hospice evaluation and the patient was admitted to provide comfort care. The patient today has not had any fever. No reported vomiting. No reported bleeding from any site. No reported chest congestion. The patient did have generalized edema. No reported seizure. REVIEW OF SYSTEMS: Limited, as patient was nonverbal. PAST MEDICAL HISTORY: As stated above. PAST SURGICAL HISTORY: As stated above. SOCIAL HISTORY: No smoking. No alcohol. FAMILY HISTORY: Noncontributory. PHYSICAL EXAMINATION: GENERAL: The patient is nonverbal. VITAL SIGNS: This morning, temperature 97.6, pulse 88, respiration rate 18, blood pressure 91/67, O2 sat 99 percent on FiO2 of 30 percent. The patient was on mechanical vent. HEENT: No eye discharge or redness. NECK: Normal neck. No mass. No JVD. CHEST: Chest revealed absent breath sounds on the left side and diminished breath sounds on right base. CARDIOVASCULAR: S1, S2 normal. Sinus tachycardia. ABDOMEN: Soft, nontender. EXTREMITIES: Edema. No clubbing, cyanosis. NEUROLOGIC: The patient is essentially nonverbal. IMPRESSION: 1. Left breast fungating mass with a prescription of left hemithorax possibly due to malignant effusion, possible diagnosis of metastatic left breast cancer. 2. Acute respiratory failure. PLAN: Patient will be terminally extubated as per family request and will be given morphine as well as Ativan prior to extubation to prevent air hunger. The patient then will be started on a morphine drip at 1 mg an hour which will be titrated up to provide comfort. We will also give DuoNeb for chest congestion, atropine drops for secretions, IV Zofran for vomiting, and Tylenol for fever. Will continue to optimize comfort care. Plan of care discussed with nursing staff at [facility] as well as [facility] nurse, the patient's daughter as well as the nephew. The patient remains terminally ill. Dictated By: Oscar Alva MD /german/onofre /Document#: [id number]
== END 2017-05-03 14:54 | disposition expired | DRG 597 ==
LOC: E/R 14:48 → MS4 16:58 → ICU 05-01 15:30
PROVIDERS: ADMIT Internal Medicine; ATTEND Internal Medicine
PROC: 0BH17EZ Insertion of Endotracheal Airway into Trachea, Via Natural or Artificial Opening (ICD-10-PCS; principal; 2017-05-01)
PROC: 5A1945Z Respiratory Ventilation, 24-96 Consecutive Hours (ICD-10-PCS; 2017-05-01)
DX: C50.912 Malignant neoplasm of unspecified site of left female breast (principal); E43 Unspecified severe protein-calorie malnutrition; J96.02 Acute respiratory failure with hypercapnia; J96.01 Acute respiratory failure with hypoxia; N17.9 Acute kidney failure, unspecified; E87.2 Acidosis; J91.0 Malignant pleural effusion; Z66 Do not resuscitate; Z68.20 Body mass index [BMI] 20.0-20.9, adult; R62.7 Adult failure to thrive; Z51.5 Encounter for palliative care; I46.9 Cardiac arrest, cause unspecified; R22.2 Localized swelling, mass and lump, trunk
CPT/HCPCS: 31500; 36415; 36600; 70450; 71010; 71020; 76642; 80048; 80053; 81001; 82803; 83605; 83735; 84100; 84134; 84484; 85025; 85610; 85730; 87040; 87070; 87081; 93005; 93971; 94002; 94003; 94660; 94664; 94770; 96372; 96374; 96375; J0692; J1644; J1650; J2060; J2185; J2270; J2310; J3370; J7030; J7999